=== PATIENT | female | born 1935 | race Caucasian/White ===

== ENCOUNTER 2019-01-10 13:26 | Inpatient (IN) | payer MEDICARE, BC ==
--- NOTE | 2019-01-10 13:37 | EDM.PDOC ---
ED HPI GENERAL MEDICAL PROBLEM - General Chief Complaint: General Stated Complaint: AMB Time Seen by Provider: 01/10/19 13:33 - History of Present Illness INITIAL COMMENTS - FREE TEXT/NARRATIVE: HISTORY AND PHYSICAL: History of present illness: Patient is an 83-year-old white female with extensive past medical history is currently on Plavix and presents with concern of cough 1 week with one episode of hemoptysis today there's been no shortness of breath no nausea no vomiting no chest pain no other concern. Review of systems: As per history of present illness and below otherwise all systems reviewed and negative. Past medical history: As per history of present illness and as reviewed below otherwise noncontributory. Surgical history: As per history of present illness and as reviewed below otherwise noncontributory. Social history: No reported history of drug or alcohol abuse. Family history: As per history of present illness and as reviewed below otherwise noncontributory. Physical exam: HEENT: Atraumatic, normocephalic, pupils reactive, negative for conjunctival pallor or scleral icterus, mucous membranes moist, throat clear, neck supple, nontender, trachea midline. Lungs: Clear to auscultation, breath sounds equal bilaterally, chest nontender. Heart: S1S2, regular, negative for clicks, rubs, or JVD. Abdomen: Soft, nondistended, nontender. Negative for masses or hepatosplenomegaly. Negative for costovertebral tenderness. Pelvis: Stable nontender. Genitourinary: Deferred. Rectal: Deferred. Extremities: Atraumatic, negative for cords or calf pain. Neurovascular unremarkable. Neuro: Awake, alert, oriented. Cranial nerves II through XII unremarkable. Cerebellum unremarkable. Motor and sensory unremarkable throughout. Exam nonfocal. Diagnostics: CBC CMP troponin PT/INR chest x-ray EKG influenza screen Therapeutics: Saline lock Impression: #1 history of hemoptysis #2 tracheobronchitis Definitive disposition and diagnosis as appropriate pending reevaluation and review of above. - Related Data Allergies Allergy/AdvReac Type Severity Reaction Status Date / Time Kfhhxyq-Elm-Lmv Reductase Allergy Cannot Verified 01/10/19 13:27 Inhibitor Remember Home Meds: Home Meds Acetaminophen [Tylenol] 325 mg PO Q4H PRN 02/10/15 [History] Aspirin [Halfprin] 81 mg PO DAILY 02/10/15 [History] Clopidogrel [Plavix] 75 mg PO DAILY 02/10/15 [History] Colesevelam HCl [Welchol] 1,875 mg PO BID 02/10/15 [History] Gemfibrozil 600 mg PO BID 02/10/15 [History] Multivits-Min/Iron/FA/Lutein [Centrum Silver Women Tablet] 1 each PO DAILY 02/10 [History] Ranitidine [Zantac] 150 mg PO BID 02/10/15 [History] Spironolactone [Aldactone] 100 mg PO DAILY 02/10/15 [History] amLODIPine [Norvasc] 2.5 mg PO DAILY 02/10/15 [History] Past Medical History HEENT History: Reports: Impaired Vision, Other (See Below) Other HEENT History: wears glasses Cardiovascular History: Reports: Hypertension Respiratory History: Reports: None Gastrointestinal History: Reports: None Genitourinary History: Reports: None COUNTRY DIRECTOR History: Reports: Other (See Below) Other COUNTRY DIRECTOR History: D&C x2 Musculoskeletal History: Reports: None Neurological History: Reports: None Psychiatric History: Reports: None Endocrine/Metabolic History: Reports: None Hematologic History: Reports: None Immunologic History: Reports: None Oncologic (Cancer) History: Reports: None Dermatologic History: Reports: None - Infectious Disease History Infectious Disease History: Reports: Chicken Pox - Past Surgical History Head Surgeries/Procedures: Reports: None HEENT Surgical History: Reports: None Cardiovascular Surgical History: Reports: Other (See Below) Other Cardiovascular Surgeries/Procedures: Right carotid artery surgery, angiogram Respiratory Surgical History: Reports: None GI Surgical History: Reports: None Female Surgical History: Reports: None Endocrine Surgical History: Reports: None Neurological Surgical History: Reports: None Musculoskeletal Surgical History: Reports: None Oncologic Surgical History: Reports: None Dermatological Surgical History: Reports: None Social & Family History - Family History Family Medical History: Noncontributory - Tobacco Use Smoking Status *Q: Never Smoker Second Hand Smoke Exposure: No - Caffeine Use Caffeine Use: Reports: Coffee - Recreational Drug Use Recreational Drug Use: No ED ROS GENERAL - Review of Systems Review Of Systems: ROS reveals no pertinent complaints other than HPI. ED EXAM, GENERAL - Physical Exam Exam: See Below (See dictation) Course - Vital Signs Last Recorded V/S: Last Vital Signs Temp 36.3 C 01/10/19 13:27 Pulse 88 02/25/19 14:28 Resp 18 01/10/19 14:28 BP 145/82 H 01/10/19 14:28 Pulse Ox 98 01/10/19 14:28 - Orders/Labs/Meds Orders: Active Orders 24 hr Category Date Time Status EKG Documentation Completion [RC] STAT Care 01/10/19 13:32 Active CULTURE BLOOD [BC] Stat Lab 01/10/19 14:40 Ordered CULTURE BLOOD [BC] Stat Lab 01/10/19 14:40 Ordered LACTATE WITH REFLEX [BG] Stat Lab 01/10/19 14:40 Ordered Levofloxacin/Dextrose 5%-Water [Levaquin in D5W 750 MG/ Med 01/10/19 14:40 Ordered 150 ML] 750 mg Premix Bag 1 bag IV ONETIME Blood Culture x2 Reflex Set [OM.PC] Stat Oth 01/10/19 14:40 Ordered Medication Orders Levofloxacin/Dextrose 750 mg/ (Premix) 150 mls @ 100 mls/hr IV ONETIME ONE Stop: 01/10/19 16:09 Labs: Laboratory Tests 01/10/19 01/10/19 01/10/19 Range/Units 13:40 13:40 13:40 WBC 12.65 H (4.0-11.0) K/uL RBC 3.82 L (4.30-5.90) M/uL Hgb 11.9 L (12.0-16.0) g/dL Hct 34.3 L (36.0-46.0) % MCV 89.8 (80.0-98.0) fL MCH 31.2 (27.0-32.0) pg MCHC 34.7 (31.0-37.0) g/dL RDW Std Deviation 40.9 (28.0-62.0) fl RDW Coeff of Filomena 13 (11.0-15.0) % Plt Count 530 H (150-400) K/uL MPV 8.80 (7.40-12.00) fL Neut % (Auto) 82.8 H (48.0-80.0) % Lymph % (Auto) 8.5 L (16.0-40.0) % [place] % (Auto) 7.5 (0.0-15.0) % Eos % (Auto) 1.0 (0.0-7.0) % Baso % (Auto) 0.2 (0.0-1.5) % Neut # (Auto) 10.5 H (1.4-5.7) K/uL Lymph # (Auto) 1.1 (0.6-2.4) K/uL [place] # (Auto) 1.0 H (0.0-0.8) K/uL Eos # (Auto) 0.1 (0.0-0.7) K/uL Baso # (Auto) 0.0 (0.0-0.1) K/uL Nucleated RBC % 0.0 /100WBC Nucleated RBCs # 0 K/uL INR 1.16 Sodium 133 L (136-145) mmol/L Potassium 3.6 (3.5-5.1) mmol/L Chloride 99 (98-107) mmol/L Carbon Dioxide 19.2 L (21.0-32.0) mmol/L BUN 18 (7.0-18.0) mg/dL Creatinine 0.9 (0.6-1.0) mg/dL Est Cr Clr Drug Dosing 36.37 mL/min Estimated GFR (MDRD) 59.9 ml/min Glucose 115 H (74-106) mg/dL Calcium 10.1 (8.5-10.1) mg/dL Total Bilirubin 0.4 (0.2-1.0) mg/dL AST 17 (15-37) IU/L ALT 17 (14-63) IU/L Alkaline Phosphatase 126 H (46-116) U/L Troponin I < 0.050 (0.000-0.056) ng/mL Total Protein 8.1 (6.4-8.2) g/dL Albumin 2.7 L (3.4-5.0) g/dL Globulin 5.4 H (2.6-4.0) g/dL Albumin/Globulin Ratio 0.5 L (0.9-1.6) Meds: Medications Generic Name Dose Route Start Last Admin Trade Name Freq PRN Reason Stop Dose Admin Levofloxacin/Dextrose 750 mg/ 150 mls @ 100 mls/hr 01/10/19 14:40 Premix IV 01/10/19 16:09 ONETIME ONE Departure - Departure Time of Disposition: 14:41 Disposition: Refer to Observation Condition: Good Clinical Impression: Pneumonia - Discharge Information Forms: ED Department Discharge - My Orders Last 24 Hours: My Active Orders 01/10/19 13:32 EKG Documentation Completion [RC] STAT 01/10/19 14:40 CULTURE BLOOD [BC] Stat CULTURE BLOOD [BC] Stat LACTATE WITH REFLEX [BG] Stat Levofloxacin/Dextrose 5%-Water [Levaquin in D5W 750 MG/150 ML] 750 mg Premix Bag 1 bag IV ONETIME Blood Culture x2 Reflex Set [OM.PC] Stat - Assessment/Plan Last 24 Hours: My Active Orders 01/10/19 13:32 EKG Documentation Completion [RC] STAT 01/10/19 14:40 CULTURE BLOOD [BC] Stat CULTURE BLOOD [BC] Stat LACTATE WITH REFLEX [BG] Stat Levofloxacin/Dextrose 5%-Water [Levaquin in D5W 750 MG/150 ML] 750 mg Premix Bag 1 bag IV ONETIME Blood Culture x2 Reflex Set [OM.PC] Stat
[2019-01-10 14:14] LABS: CHLORIDE,CL 99 mmol/L (98-107); SODIUM,NA 133 mmol/L (136-145)
--- NOTE | 2019-01-10 14:33 | CR ---
EXAMINATION: AP chest radiograph. HISTORY: Cough. FINDINGS: The trachea is midline. The cardiomediastinal silhouette is within normal limits. There is masslike consolidation within the right lung base. There is also consolidation within the left lung base likely a trace pleural effusion. No pneumothorax. Osseous structures appear unremarkable. IMPRESSION: Bibasilar consolidation/infiltrate. Follow-up chest radiograph after treatment is recommended to rule out a neoplastic process.
[2019-01-10] MEDS ORDERED: Levofloxacin/Dextrose 5%-Water 750 MG in Premix Bag 1 BAG IV ONE (14:40)
--- NOTE | 2019-01-10 18:19 | PCM.HP ---
H&P History of Present Illness - General Date of Service: 01/10/19 Admit Problem/Dx: Admission Diagnosis/Problem Admission Diagnosis/Problem Pneumonia - History of Present Illness Initial Comments - Free Text/Narative: 83-year-old female presenting with a one-week history of cough, shortness of breath without any fevers or chills or significant fatigue. Patient states that she became concerned this morning after having a bout of cough that resulted in some hemoptysis as well. This was the first time that she had some hemoptysis since her symptoms began. She does take Plavix for carotid stenosis. She does not have any major cardiovascular events she does take amlodipine and spironolactone for hypertension, cholesterol medication and the antiplatelet therapy. Patient denies any history of respiratory illnesses including COPD. Patient denies any smoking history, denies any history of type 2 diabetes. - Related Data Allergies/Adverse Reactions: Allergies Allergy/AdvReac Type Severity Reaction Status Date / Time Qsysryg-Hip-Jia Reductase Allergy Cannot Verified 01/10/19 13:27 Inhibitor Remember Home Medications: Home Meds Acetaminophen [Tylenol] 325 mg PO Q4H PRN 02/10/15 [History] Aspirin [Halfprin] 81 mg PO DAILY 02/10/15 [History] Clopidogrel [Plavix] 75 mg PO DAILY 02/10/15 [History] Colesevelam HCl [Welchol] 1,875 mg PO BID 02/10/15 [History] Gemfibrozil 600 mg PO BID 02/10/15 [History] Multivits-Min/Iron/FA/Lutein [Centrum Silver Women Tablet] 1 each PO DAILY 02/10 [History] Ranitidine [Zantac] 150 mg PO BID 02/10/15 [History] Spironolactone [Aldactone] 100 mg PO DAILY 02/10/15 [History] amLODIPine [Norvasc] 2.5 mg PO DAILY 02/10/15 [History] Past Medical History HEENT History: Reports: Impaired Vision, Other (See Below) Other HEENT History: wears glasses Cardiovascular History: Reports: Hypertension Respiratory History: Reports: None Gastrointestinal History: Reports: None Genitourinary History: Reports: None FLOW SPECIALIST History: Reports: Other (See Below) Other OB/BYN History: D&C x2 Musculoskeletal History: Reports: None Neurological History: Reports: None Psychiatric History: Reports: None Endocrine/Metabolic History: Reports: None Hematologic History: Reports: None Immunologic History: Reports: None Oncologic (Cancer) History: Reports: None Dermatologic History: Reports: None - Infectious Disease History Infectious Disease History: Reports: Chicken Pox - Past Surgical History Head Surgeries/Procedures: Reports: None HEENT Surgical History: Reports: None Cardiovascular Surgical History: Reports: Other (See Below) Other Cardiovascular Surgeries/Procedures: Right carotid artery surgery, angiogram Respiratory Surgical History: Reports: None GI Surgical History: Reports: None Female Surgical History: Reports: None Endocrine Surgical History: Reports: None Neurological Surgical History: Reports: None Musculoskeletal Surgical History: Reports: None Oncologic Surgical History: Reports: None Dermatological Surgical History: Reports: None Social & Family History - Family History Family Medical History: Noncontributory - Tobacco Use Smoking Status *Q: Never Smoker Second Hand Smoke Exposure: No - Caffeine Use Caffeine Use: Reports: Coffee - Recreational Drug Use Recreational Drug Use: No H&P Review of Systems - Review of Systems: Review Of Systems: ROS reveals no pertinent complaints other than HPI. Exam - Exam Exam: See Below - Vital Signs Vital Signs: Last Vital Signs Temp 36.3 C 01/10/19 13:27 Pulse 95 01/10/19 17:02 Resp 18 01/10/19 17:02 BP 135/65 01/10/19 17:02 Pulse Ox 95 01/10/19 17:02 Weight: 68.039 kg - Exam General: Alert, Oriented, Cooperative Lungs: Clear to Auscultation, Decreased Breath Sounds Cardiovascular: Regular Rate, Regular Rhythm Extremities: Normal Inspection, Normal Range of Motion, Non-Tender, No Pedal Edema, Normal Capillary Refill - Patient Data Lab Results Last 24 hrs: Laboratory Results - last 24 hr 01/10/19 01/10/19 01/10/19 Range/Units 13:40 13:40 13:40 WBC 12.65 H (4.0-11.0) K/uL RBC 3.82 L (4.30-5.90) M/uL Hgb 11.9 L (12.0-16.0) g/dL Hct 34.3 L (36.0-46.0) % MCV 89.8 (80.0-98.0) fL MCH 31.2 (27.0-32.0) pg MCHC 34.7 (31.0-37.0) g/dL RDW Std Deviation 40.9 (28.0-62.0) fl RDW Coeff of Filomena 13 (11.0-15.0) % Plt Count 530 H (150-400) K/uL MPV 8.80 (7.40-12.00) fL Neut % (Auto) 82.8 H (48.0-80.0) % Lymph % (Auto) 8.5 L (16.0-40.0) % [place] % (Auto) 7.5 (0.0-15.0) % Eos % (Auto) 1.0 (0.0-7.0) % Baso % (Auto) 0.2 (0.0-1.5) % Neut # (Auto) 10.5 H (1.4-5.7) K/uL Lymph # (Auto) 1.1 (0.6-2.4) K/uL [place] # (Auto) 1.0 H (0.0-0.8) K/uL Eos # (Auto) 0.1 (0.0-0.7) K/uL Baso # (Auto) 0.0 (0.0-0.1) K/uL Nucleated RBC % 0.0 /100WBC Nucleated RBCs # 0 K/uL INR 1.16 Lactate (0.20-2.00) mmol/L Sodium 133 L (136-145) mmol/L Potassium 3.6 (3.5-5.1) mmol/L Chloride 99 (98-107) mmol/L Carbon Dioxide 19.2 L (21.0-32.0) mmol/L BUN 18 (7.0-18.0) mg/dL Creatinine 0.9 (0.6-1.0) mg/dL Est Cr Clr Drug Dosing 36.37 mL/min Estimated GFR (MDRD) 59.9 ml/min Glucose 115 H (74-106) mg/dL Calcium 10.1 (8.5-10.1) mg/dL Total Bilirubin 0.4 (0.2-1.0) mg/dL AST 17 (15-37) IU/L ALT 17 (14-63) IU/L Alkaline Phosphatase 126 H (46-116) U/L Troponin I < 0.050 (0.000-0.056) ng/mL Total Protein 8.1 (6.4-8.2) g/dL Albumin 2.7 L (3.4-5.0) g/dL Globulin 5.4 H (2.6-4.0) g/dL Albumin/Globulin Ratio 0.5 L (0.9-1.6) 01/10/19 Range/Units 15:21 WBC (4.0-11.0) K/uL RBC (4.30-5.90) M/uL Hgb (12.0-16.0) g/dL Hct (36.0-46.0) % MCV (80.0-98.0) fL MCH (27.0-32.0) pg MCHC (31.0-37.0) g/dL RDW Std Deviation (28.0-62.0) fl RDW Coeff of Filomena (11.0-15.0) % Plt Count (150-400) K/uL MPV (7.40-12.00) fL Neut % (Auto) (48.0-80.0) % Lymph % (Auto) (16.0-40.0) % [place] % (Auto) (0.0-15.0) % Eos % (Auto) (0.0-7.0) % Baso % (Auto) (0.0-1.5) % Neut # (Auto) (1.4-5.7) K/uL Lymph # (Auto) (0.6-2.4) K/uL [place] # (Auto) (0.0-0.8) K/uL Eos # (Auto) (0.0-0.7) K/uL Baso # (Auto) (0.0-0.1) K/uL Nucleated RBC % /100WBC Nucleated RBCs # K/uL INR Lactate 1.1 (0.20-2.00) mmol/L Sodium (136-145) mmol/L Potassium (3.5-5.1) mmol/L Chloride (98-107) mmol/L Carbon Dioxide (21.0-32.0) mmol/L BUN (7.0-18.0) mg/dL Creatinine (0.6-1.0) mg/dL Est Cr Clr Drug Dosing mL/min Estimated GFR (MDRD) ml/min Glucose (74-106) mg/dL Calcium (8.5-10.1) mg/dL Total Bilirubin (0.2-1.0) mg/dL AST (15-37) IU/L ALT (14-63) IU/L Alkaline Phosphatase (46-116) U/L Troponin I (0.000-0.056) ng/mL Total Protein (6.4-8.2) g/dL Albumin (3.4-5.0) g/dL Globulin (2.6-4.0) g/dL Albumin/Globulin Ratio (0.9-1.6) Result Diagrams: 01/10/19 13:40 01/10/19 13:40 Baron Results Last 24 hrs: Microbiology 01/10/19 13:40 Influenza Type A Antigen Screen - Final Nasopharyngeal Swab NEGATIVE INFLUENZA A VIRUS AG Influenza Type B Antigen Screen - Final NEGATIVE INFLUENZA B VIRUS AG Problem List Initiated/Reviewed/Updated: Yes Orders Last 24hrs: Active Orders 24 hr Category Date Time Status Patient Status [ADT] Stat ADT 01/10/19 14:44 Active EKG Documentation Completion [RC] STAT Care 01/10/19 13:32 Active CULTURE BLOOD [BC] Stat Lab 01/10/19 14:58 Received CULTURE BLOOD [BC] Stat Lab 01/10/19 15:21 Received Blood Culture x2 Reflex Set [OM.PC] Stat Oth 01/10/19 14:40 Ordered Assessment/Plan Comment:: This is a 83-year-old female with a one-week history of cough, shortness of breath on exertion, one day history of hemoptysis without any fevers or chills with a chest x-ray indicating bibasilar consolidation with the recommendation of a follow-up chest x-ray after treatment to rule out any neoplastic process. Plan is to start the patient on IV antibiotics Levaquin 750 every 24 hours, trend labs to ensure appropriate response to therapy, sputum cultures and blood cultures. Patient to also give supplement therapy for hypoxia as needed.
[2019-01-10] MEDS ORDERED: Sodium Chloride 0.9% 2.5 ML Syringe FLUSH PRN (18:20)
[2019-01-10] MEDS ORDERED: Sodium Chloride 0.9% 10 ML Syringe FLUSH PRN (18:20)
[2019-01-10] MEDS ORDERED: Acetaminophen 325 MG Tab PO PRN (18:20)
[2019-01-10] MEDS ORDERED: Morphine 2 MG/ML Syringe IVPUSH PRN (18:20)
[2019-01-10] MEDS ORDERED: Ondansetron 4 MG/2 ML SDV IVPUSH PRN (18:20)
[2019-01-11] MEDS ORDERED: Sodium Chloride 0.9% 1,000 ML IV SCH (10:30)
[2019-01-11] MEDS ORDERED: Iopamidol 755 MG/ML 500 ML Multipack Bottle IVPUSH STA (10:50)
--- NOTE | 2019-01-11 11:12 | PCM.PN ---
- General Info Date of Service: 01/11/19 Admission Dx/Problem (Free Text): Admission Diagnosis/Problem Admission Diagnosis/Problem Pneumonia Subjective Update: Feeling ok today, no more episodes of hemoptysis. Has not been out of bed much to see how shortness of breath is, but at rest she feels ok. Functional Status: Reports: Pain Controlled, Tolerating Diet, Urinating - Review of Systems HEENT: Reports: No Symptoms. Denies: Headaches, Sore Throat Pulmonary: Reports: Shortness of Breath, Cough, Sputum (clear to green). Denies : Hemoptysis, Wheezing Cardiovascular: Reports: No Symptoms. Denies: Chest Pain, Palpitations, Lightheadedness Gastrointestinal: Reports: No Symptoms. Denies: Abdominal Pain, Nausea, Vomiting Genitourinary: Reports: No Symptoms Musculoskeletal: Reports: No Symptoms Skin: Reports: No Symptoms Neurological: Reports: No Symptoms Psychiatric: Reports: No Symptoms - Patient Data Vitals - Most Recent: Last Vital Signs Temp 97.2 F 01/11/19 08:00 Pulse 86 01/11/19 08:00 Resp 20 01/11/19 08:00 BP 118/72 01/11/19 08:00 Pulse Ox 93 L 01/11/19 08:00 Weight - Most Recent: 67.132 kg I&O - Last 24 Hours: Intake & Output 01/10/19 01/11/19 01/11/19 22:59 06:59 14:59 Intake Total 200 Output Total 400 Balance -200 Lab Results Last 24 Hours: Laboratory Results - last 24 hr 01/10/19 01/10/19 01/10/19 Range/Units 13:40 13:40 13:40 WBC 12.65 H (4.0-11.0) K/uL RBC 3.82 L (4.30-5.90) M/uL Hgb 11.9 L (12.0-16.0) g/dL Hct 34.3 L (36.0-46.0) % MCV 89.8 (80.0-98.0) fL MCH 31.2 (27.0-32.0) pg MCHC 34.7 (31.0-37.0) g/dL RDW Std Deviation 40.9 (28.0-62.0) fl RDW Coeff of Filomena 13 (11.0-15.0) % Plt Count 530 H (150-400) K/uL MPV 8.80 (7.40-12.00) fL Neut % (Auto) 82.8 H (48.0-80.0) % Lymph % (Auto) 8.5 L (16.0-40.0) % [place] % (Auto) 7.5 (0.0-15.0) % Eos % (Auto) 1.0 (0.0-7.0) % Baso % (Auto) 0.2 (0.0-1.5) % Neut # (Auto) 10.5 H (1.4-5.7) K/uL Lymph # (Auto) 1.1 (0.6-2.4) K/uL [place] # (Auto) 1.0 H (0.0-0.8) K/uL Eos # (Auto) 0.1 (0.0-0.7) K/uL Baso # (Auto) 0.0 (0.0-0.1) K/uL Add Manual Diff Neutrophils % (Manual) (48.0-80.0) % Band Neutrophils % % Lymphocytes % (Manual) (16.0-40.0) % Monocytes % (Manual) (0.0-15.0) % Eosinophils % (Manual) (0.0-7.0) % Nucleated RBC % 0.0 /100WBC Absolute Seg Neuts (1.4-5.7) Band Neutrophils # Lymphocytes # (Manual) (0.6-2.4) Monocytes # (Manual) (0.0-0.8) Eosinophils # (Manual) (0.0-0.7) Nucleated RBCs # 0 K/uL INR 1.16 Lactate (0.20-2.00) mmol/L Sodium 133 L (136-145) mmol/L Potassium 3.6 (3.5-5.1) mmol/L Chloride 99 (98-107) mmol/L Carbon Dioxide 19.2 L (21.0-32.0) mmol/L BUN 18 (7.0-18.0) mg/dL Creatinine 0.9 (0.6-1.0) mg/dL Est Cr Clr Drug Dosing 36.37 mL/min Estimated GFR (MDRD) 59.9 ml/min Glucose 115 H (74-106) mg/dL Calcium 10.1 (8.5-10.1) mg/dL Total Bilirubin 0.4 (0.2-1.0) mg/dL AST 17 (15-37) IU/L ALT 17 (14-63) IU/L Alkaline Phosphatase 126 H (46-116) U/L Troponin I < 0.050 (0.000-0.056) ng/mL Total Protein 8.1 (6.4-8.2) g/dL Albumin 2.7 L (3.4-5.0) g/dL Globulin 5.4 H (2.6-4.0) g/dL Albumin/Globulin Ratio 0.5 L (0.9-1.6) 01/10/19 01/11/19 01/11/19 Range/Units 15:21 05:25 05:25 WBC 12.48 H (4.0-11.0) K/uL RBC 3.91 L (4.30-5.90) M/uL Hgb 12.2 (12.0-16.0) g/dL Hct 35.5 L (36.0-46.0) % MCV 90.8 (80.0-98.0) fL MCH 31.2 (27.0-32.0) pg MCHC 34.4 (31.0-37.0) g/dL RDW Std Deviation 41.8 (28.0-62.0) fl RDW Coeff of Filomena 13 (11.0-15.0) % Plt Count 595 H (150-400) K/uL MPV 9.10 (7.40-12.00) fL Neut % (Auto) (48.0-80.0) % Lymph % (Auto) (16.0-40.0) % [place] % (Auto) (0.0-15.0) % Eos % (Auto) (0.0-7.0) % Baso % (Auto) (0.0-1.5) % Neut # (Auto) (1.4-5.7) K/uL Lymph # (Auto) (0.6-2.4) K/uL [place] # (Auto) (0.0-0.8) K/uL Eos # (Auto) (0.0-0.7) K/uL Baso # (Auto) (0.0-0.1) K/uL Add Manual Diff YES Neutrophils % (Manual) 72 (48.0-80.0) % Band Neutrophils % 5 % Lymphocytes % (Manual) 17 (16.0-40.0) % Monocytes % (Manual) 5 (0.0-15.0) % Eosinophils % (Manual) 1 (0.0-7.0) % Nucleated RBC % 0.0 /100WBC Absolute Seg Neuts 9.0 H (1.4-5.7) Band Neutrophils # 0.6 Lymphocytes # (Manual) 2.1 (0.6-2.4) Monocytes # (Manual) 0.6 (0.0-0.8) Eosinophils # (Manual) 0.1 (0.0-0.7) Nucleated RBCs # 0 K/uL INR Lactate 1.1 (0.20-2.00) mmol/L Sodium 135 L (136-145) mmol/L Potassium 3.8 (3.5-5.1) mmol/L Chloride 99 (98-107) mmol/L Carbon Dioxide 21.1 (21.0-32.0) mmol/L BUN 15 (7.0-18.0) mg/dL Creatinine 1.0 (0.6-1.0) mg/dL Est Cr Clr Drug Dosing 32.73 mL/min Estimated GFR (MDRD) 53.1 ml/min Glucose 112 H (74-106) mg/dL Calcium 10.1 (8.5-10.1) mg/dL Total Bilirubin 0.4 (0.2-1.0) mg/dL AST 18 (15-37) IU/L ALT 18 (14-63) IU/L Alkaline Phosphatase 128 H (46-116) U/L Troponin I (0.000-0.056) ng/mL Total Protein 8.0 (6.4-8.2) g/dL Albumin 2.6 L (3.4-5.0) g/dL Globulin 5.4 H (2.6-4.0) g/dL Albumin/Globulin Ratio 0.5 L (0.9-1.6) Baron Results Last 24 Hours: Microbiology 01/10/19 13:40 Influenza Type A Antigen Screen - Final Nasopharyngeal Swab NEGATIVE INFLUENZA A VIRUS AG Influenza Type B Antigen Screen - Final NEGATIVE INFLUENZA B VIRUS AG Med Orders - Current: Current Medications Acetaminophen (Tylenol) 650 mg PO Q4H PRN PRN Reason: Pain (Mild 1-3)/fever Piperacillin Sod/Tazobactam (Sod 3.375 gm/ Sodium Chloride) 50 mls @ 100 mls/ hr IV Q6H MYRA Sodium Chloride (Normal Saline) 1,000 mls @ 100 mls/hr IV ASDIRECTED MYRA Stop: 01/11/19 20:29 Morphine Sulfate (Morphine) 2 mg IVPUSH Q2H PRN PRN Reason: Pain (severe 7-10) Stop: 01/11/19 18:21 Ondansetron HCl (Zofran) 4 mg IVPUSH Q4H PRN PRN Reason: Nausea/Vomiting Sodium Chloride (Saline Flush) 10 ml FLUSH ASDIRECTED PRN PRN Reason: Keep Vein Open Sodium Chloride (Saline Flush) 2.5 ml FLUSH ASDIRECTED PRN PRN Reason: Keep Vein Open Discontinued Medications Levofloxacin/Dextrose 750 mg/ (Premix) 150 mls @ 100 mls/hr IV ONETIME ONE Stop: 01/10/19 16:09 Last Admin: 01/10/19 15:22 Dose: 100 mls/hr Iopamidol (Isovue Multipack-370 (76%)) 65 ml IVPUSH ONETIME STA Stop: 01/11/19 10:51 Last Admin: 01/11/19 10:51 Dose: 65 ml - Exam General: Alert, Oriented, Cooperative, No Acute Distress Neck: Supple Lungs: Normal Respiratory Effort, Rhonchi (bibasilar) Cardiovascular: Regular Rate, Regular Rhythm, No Murmurs GI/Abdominal Exam: Normal Bowel Sounds, Soft, Non-Tender Extremities: Normal Inspection, Normal Range of Motion, Non-Tender, No Pedal Edema Neurological: No New Focal Deficit Psy/Mental Status: Alert, Normal Affect, Normal Mood - Problem List & Annotations (1) Pneumonia SNOMED Code(s): 636186116 Code(s): J18.9 - PNEUMONIA, UNSPECIFIED ORGANISM Status: Acute Current Visit: Yes Qualifiers: Laterality: bilateral Lung location: lower lobe of lung (2) HTN (hypertension) SNOMED Code(s): 55237365 Code(s): I10 - ESSENTIAL (PRIMARY) HYPERTENSION Status: Chronic Current Visit: Yes Qualifiers: Hypertension type: essential hypertension Qualified Code(s): I10 - Essential (primary) hypertension (3) Carotid stenosis Status: Chronic Current Visit: Yes Qualifiers: Laterality: right Qualified Code(s): I65.21 - Occlusion and stenosis of right carotid artery (4) Hypercholesteremia SNOMED Code(s): 38258740 Code(s): E78.00 - PURE HYPERCHOLESTEROLEMIA, UNSPECIFIED Status: Chronic Current Visit: Yes - Problem List Review Problem List Initiated/Reviewed/Updated: Yes - My Orders Last 24 Hours: My Active Orders 01/11/19 10:22 Chest w Cont [CT] Routine 01/11/19 10:30 Piperacillin/Tazobactam [Piperacil-Tazobact] 3.375 gm Sodium Chloride 0.9% [ Normal Saline] 50 ml IV Q6H Sodium Chloride 0.9% [Normal Saline] 1,000 ml IV ASDIRECTED Resuscitation Status Routine - Plan Plan:: This is a 83-year-old female with a one-week history of cough, shortness of breath on exertion, one day history of hemoptysis without any fevers or chills 1. CAP: Suspected CAP, Continue Levaquin 750 mg Q48 for renal adjustment, start Zosyn 3.375 mg Q6hr for anaerobic coverage due to mass like consolidation. Will obtain Chest CT today. Sputum and BC pending. 2. HTN: Stable. Continue Norvasc and Aldactone. 3. Hx Carotid stenosis: Plavix, continue for now no further hemoptysis noted. May consider stopping if this returns. 4. Hypercholesterolemia: Stable, continue home medications. VTE prophylaxis: SCDS for now due to hemoptysis. Dispo: 1-2 days pending improvement.
[2019-01-11] MEDS: Piperacillin/Tazobactam 3.375 GM in Sodium Chloride 0.9% 50 ML IV SCH ×3 (11:31→22:21)
[2019-01-11] MEDS: amLODIPine 2.5 MG Tab PO SCH (14:00)
[2019-01-11] MEDS: Spironolactone 25 MG Tab PO SCH (14:00)
--- NOTE | 2019-01-11 14:54 | CT ---
EXAMINATION: CT chest with contrast HISTORY: Masslike consolidation COMPARISON: Radiographs dated 01/10/2019, 11/02/2018 TECHNIQUE: Axial CT imaging obtained through the chest following the administration of 65 mL of Isovue-370 in the right anterior fossa. Coronal and sagittal reconstructions obtained. FINDINGS: Bilateral pulmonary masses and nodules are noted. There is a 2.3 cm spiculated heterogeneously enhancing nodule within the right middle lobe. There is nodular atelectasis within the right middle lobe. Also discrete nodules noted within the right lower lobe measuring 1.7 cm and the left suprahilar region measuring 1.2 cm. The central component of the nodules appear hypoenhancing, this may represent central necrosis, abscesses could also have a similar appearance. Trace right pleural effusion. There is a 2.3 x 4.1 cm right thyroid lobe nodule, well circumscribed. The thoracic aorta is normal in caliber. The main and central pulmonary arteries are patent. Nonpathologically enlarged mediastinal and hilar lymph nodes are noted. There is a small hiatal hernia. Small amount of fluid within the esophagus. Visualized images of the upper abdomen are grossly unremarkable. No suspicious osseous abnormalities. IMPRESSION: 1. Several pulmonary nodules noted bilaterally, these appear centrally hypoenhancing. These were not noted on the chest radiograph dated 11/02/2018, given the rapid progression these likely represent abscesses or metastatic disease. 2. There is an indeterminant 2.3 x 4.1 cm right thyroid nodule, correlation with ultrasound may be beneficial. 3. Small hiatal hernia with likely reflux.
--- NOTE | 2019-01-11 15:59 | PCM.SN ---
- Free Text/Narrative Note: CT of chest with contrast returned with spiculated heterogeneously enhancing nodule within the right middle lobe, also discrete nodules noted within the R lower lobe and left suprahilar region. There also was a indeterminant 2.3 x 4.1 cm r thyroid nodule noted as well. We spoke with Fabiana regarding findings on chest CT. Biopsy of mass is recommended , timeline for our facility would be 3-4 weeks out before biopsy would be available. Fabiana requested I speak with her niece, Tana Walsh, and inform her of these findings. She then would help her decide where she should go for further workup, she is considering [facility] or [facility]. Will continue Zosyn alone for now. Possible DC in next day or two pending improvement. Tana Walsh, byron [phone]
[2019-01-11] MEDS ORDERED: Clopidogrel 75 MG Tab PO ONE (18:08)
[2019-01-11] MEDS: Gemfibrozil 600 MG Tab PO SCH (20:25)
[2019-01-11] MEDS: Colesevelam 625 MG Tab PO SCH (20:25)
[2019-01-12] MEDS: Piperacillin/Tazobactam 3.375 GM in Sodium Chloride 0.9% 50 ML IV SCH ×2 (05:30→10:52)
[2019-01-12] MEDS: Gemfibrozil 600 MG Tab PO SCH (08:37)
[2019-01-12] MEDS ORDERED: Beta-Carotene (Vitamin A) w/Vitamin C & E plus Minerals Tab PO SCH (09:00)
[2019-01-12] MEDS ORDERED: Pantoprazole 40 MG Tab.CR PO SCH (09:00)
[2019-01-12] MEDS ORDERED: Clopidogrel 75 MG Tab PO SCH (09:00)
[2019-01-12] MEDS: amLODIPine 2.5 MG Tab PO SCH (09:07)
[2019-01-12] MEDS: Spironolactone 25 MG Tab PO SCH (09:08)
[2019-01-12] MEDS: Colesevelam 625 MG Tab PO SCH (09:10)
[2019-01-12] MEDS ORDERED: Levofloxacin/Dextrose 5%-Water 750 MG in Premix Bag 1 BAG IV SCH (10:00)
--- NOTE | 2019-01-12 11:15 | PCM.DCSUM1 ---
Discharge Summary - Hospital Course Brief History: 83-year-old female presenting with a one-week history of cough, shortness of breath without any fevers or chills or significant fatigue. Patient states that she became concerned this morning after having a bout of cough that resulted in some hemoptysis as well. This was the first time that she had some hemoptysis since her symptoms began. She does take Plavix for carotid stenosis. She does not have any major cardiovascular events she does take amlodipine and spironolactone for hypertension, cholesterol medication and the antiplatelet therapy. Patient denies any history of respiratory illnesses including COPD. Patient denies any smoking history, denies any history of type 2 diabetes. Diagnosis: Stroke: No - Discharge Data Discharge Date: 01/12/19 Discharge Disposition: Home, Self-Care 01 Condition: Good - Discharge Diagnosis/Problem(s) (1) Pneumonia SNOMED Code(s): 312365110 ICD Code: J18.9 - PNEUMONIA, UNSPECIFIED ORGANISM Status: Acute Current Visit: Yes Qualifiers: Laterality: bilateral Lung location: lower lobe of lung (2) HTN (hypertension) SNOMED Code(s): 86527972 ICD Code: I10 - ESSENTIAL (PRIMARY) HYPERTENSION Status: Chronic Current Visit: Yes Qualifiers: Hypertension type: essential hypertension Qualified Code(s): I10 - Essential (primary) hypertension (3) Carotid stenosis Status: Chronic Current Visit: Yes Qualifiers: Laterality: right Qualified Code(s): I65.21 - Occlusion and stenosis of right carotid artery (4) Hypercholesteremia SNOMED Code(s): 44056488 ICD Code: E78.00 - PURE HYPERCHOLESTEROLEMIA, UNSPECIFIED Status: Chronic Current Visit: Yes - Patient Instructions Diet: Heart Healthy Diet Activity: As Tolerated Showering/Bathing: May Shower Notify Provider of: Fever, Increased Pain, Swelling and Redness, Drainage, Nausea and/or Vomiting - Discharge Plan *PRESCRIPTION DRUG MONITORING PROGRAM REVIEWED*: Not Applicable *COPY OF PRESCRIPTION DRUG MONITORING REPORT IN PATIENT LINDA: Not Applicable Prescriptions/Med Rec: Amoxicillin/Clavulanate K [Augmentin 875-125 MG] 1 tab PO BID #10 tablet Benzonatate [Tessalon Perle] 100 mg PO TID PRN #30 capsule PRN Reason: Cough Home Medications: Home Meds Acetaminophen [Tylenol] 325 mg PO Q4H PRN 02/10/15 [History] Colesevelam HCl [Welchol] 1,875 mg PO BID 02/10/15 [History] Gemfibrozil 600 mg PO BID 02/10/15 [History] Multivits-Min/Iron/FA/Lutein [Centrum Silver Women Tablet] 1 each PO DAILY 02/10 [History] Spironolactone [Aldactone] 100 mg PO DAILY 02/10/15 [History] amLODIPine [Norvasc] 2.5 mg PO DAILY 02/10/15 [History] Pantoprazole Sodium [Protonix] 40 mg PO DAILY 01/10/19 [History] Amoxicillin/Clavulanate K [Augmentin 875-125 MG] 1 tab PO BID #10 tablet [Rx] Benzonatate [Tessalon Perle] 100 mg PO TID PRN #30 capsule 01/12/19 [Rx] Clopidogrel [Plavix] 75 mg PO DAILY #0 01/12/19 [Rx] Oxygen Therapy Mode: Room Air Patient Handouts: Community-Acquired Pneumonia, Adult, [id number] Referrals: [facility] [Outside] Clif Buckner MD [Physician] - 01/26/19 10:30 am - Discharge Summary/Plan Comment DC Time >30 min.: Yes (arranging biopsy in [place]) Discharge Summary/Plan Comment: Discharge Diagnoses: R middle lung lobe spiculated mass Possible CAP HTN Carotid stenosis Hyperlipidemia Fabiana was admitted secondary to new hemoptysis, dyspnea and dry cough. She denied fevers or chills. She reports she has not been eating well either. Slight leukocytosis was noted at 12,000 on admission. BC negative. Unable to obtain sputum, non productive cough and no further events of hemoptysis. She denies chest pain. Upon admission, CXR revealed mass like consolidation. Chest CT with contrast was obtained due to suspicion of mass. This revealed spiculated mass to RML with surrounding nodules as well. She reports smoked 2-3 ppd cigarettes around her. Biopsy was recommended, due to scheduling here with our radiologist, we are unable to obtain biopsy within the next 3 weeks. In discussion with patient and her niece, Tana Walsh, in [place], [place] they would like to seek care in [place] at [facility]. I have contacted a radiologist, Dr Connor, who reviewed the CT and reports they would be able to obtain a biospy of this area. Order sent to [facility] radiology department and they will call with patient with appointment date/time. We will continue Augmentin for 5 more days due to risk of pneumonia, though suspicion is low. She will be discharged home today with this prescription. She is to return to ED or clinic if concerns should arise. She is to hold Plavix 5 days prior to biopsy. She verbalized understanding of this. - General Info Date of Service: 01/12/19 Admission Dx/Problem (Free Text: Admission Diagnosis/Problem Admission Diagnosis/Problem Pneumonia Subjective Update: Sitting up in bed , feeling good after she ate today. Denies chest pain or SOB. No SOB with ambulation. No other concerns. Eager to arrange biopsy in [place], [place] Functional Status: Reports: Pain Controlled, Tolerating Diet, Ambulating, Urinating - Review of Systems General: Reports: No Symptoms. Denies: Fever, Weakness, Fatigue HEENT: Reports: No Symptoms. Denies: Headaches, Sore Throat Pulmonary: Reports: No Symptoms. Denies: Shortness of Breath, Cough, Sputum Cardiovascular: Reports: No Symptoms. Denies: Chest Pain, Edema Gastrointestinal: Reports: No Symptoms. Denies: Abdominal Pain, Nausea, Vomiting Genitourinary: Reports: No Symptoms. Denies: Dysuria, Frequency, Burning Musculoskeletal: Reports: No Symptoms Skin: Reports: No Symptoms Neurological: Reports: No Symptoms Psychiatric: Reports: No Symptoms - Patient Data Vitals - Most Recent: Last Vital Signs Temp 97.5 F 01/12/19 07:47 Pulse 80 01/12/19 08:10 Resp 14 01/12/19 07:47 BP 125/64 01/12/19 09:07 Pulse Ox 96 01/12/19 07:47 Weight - Most Recent: 67.132 kg I&O - Last 24 hours: Intake & Output 01/11/19 01/12/19 01/12/19 22:59 06:59 14:59 Intake Total 1154 1300 Output Total 500 1100 Balance 654 200 Lab Results - Last 24 hrs: Laboratory Results - last 24 hr 01/12/19 01/12/19 Range/Units 05:00 05:00 WBC 10.73 (4.0-11.0) K/uL RBC 3.61 L (4.30-5.90) M/uL Hgb 11.3 L (12.0-16.0) g/dL Hct 32.9 L (36.0-46.0) % MCV 91.1 (80.0-98.0) fL MCH 31.3 (27.0-32.0) pg MCHC 34.3 (31.0-37.0) g/dL RDW Std Deviation 42.3 (28.0-62.0) fl RDW Coeff of Filomena 13 (11.0-15.0) % Plt Count 537 H (150-400) K/uL MPV 8.90 (7.40-12.00) fL Add Manual Diff YES Neutrophils % (Manual) 76 (48.0-80.0) % Band Neutrophils % 2 % Lymphocytes % (Manual) 15 L (16.0-40.0) % Monocytes % (Manual) 5 (0.0-15.0) % Eosinophils % (Manual) 2 (0.0-7.0) % Nucleated RBC % 0.0 /100WBC Absolute Seg Neuts 8.2 H (1.4-5.7) Band Neutrophils # 0.2 Lymphocytes # (Manual) 1.6 (0.6-2.4) Monocytes # (Manual) 0.5 (0.0-0.8) Eosinophils # (Manual) 0.2 (0.0-0.7) Nucleated RBCs # 0 K/uL Sodium 138 (136-145) mmol/L Potassium 3.7 (3.5-5.1) mmol/L Chloride 103 (98-107) mmol/L Carbon Dioxide 22.6 (21.0-32.0) mmol/L BUN 13 (7.0-18.0) mg/dL Creatinine 0.9 (0.6-1.0) mg/dL Est Cr Clr Drug Dosing 36.37 mL/min Estimated GFR (MDRD) 59.9 ml/min Glucose 105 (74-106) mg/dL Calcium 9.1 (8.5-10.1) mg/dL TRAVIS Results - Last 24 hrs: Microbiology 01/10/19 15:21 Aerobic Blood Culture - Preliminary Blood - Venous - Lab Draw NO GROWTH AFTER 1 DAY Anaerobic Blood Culture - Preliminary NO GROWTH AFTER 1 DAY 01/10/19 14:58 Aerobic Blood Culture - Preliminary Blood - Venous NO GROWTH AFTER 1 DAY Anaerobic Blood Culture - Preliminary NO GROWTH AFTER 1 DAY Med Orders - Current: Current Medications Acetaminophen (Tylenol) 650 mg PO Q4H PRN PRN Reason: Pain (Mild 1-3)/fever Amlodipine Besylate (Norvasc) 2.5 mg PO DAILY [facility] Last Admin: 01/12/19 09:07 Dose: 2.5 mg Clopidogrel Bisulfate (Plavix) 75 mg PO DAILY [facility] Last Admin: 01/12/19 09:06 Dose: 75 mg Colesevelam HCl (Welchol) 1,875 mg PO BID [facility] Last Admin: 01/12/19 09:10 Dose: 1,875 mg Gemfibrozil (Lopid) 600 mg PO BID [facility] Last Admin: 01/12/19 08:37 Dose: 600 mg Piperacillin Sod/Tazobactam (Sod 3.375 gm/ Sodium Chloride) 50 mls @ 100 mls/ hr IV Q6H [facility] Last Admin: 01/12/19 10:52 Dose: 100 mls/hr Multivitamins/Minerals (Prosight) 1 tab PO DAILY [facility] Last Admin: 01/12/19 09:10 Dose: 1 tab Ondansetron HCl (Zofran) 4 mg IVPUSH Q4H PRN PRN Reason: Nausea/Vomiting Pantoprazole Sodium (Protonix) 40 mg PO DAILY [facility] Last Admin: 01/12/19 08:38 Dose: 40 mg Sodium Chloride (Saline Flush) 10 ml FLUSH ASDIRECTED PRN PRN Reason: Keep Vein Open Sodium Chloride (Saline Flush) 2.5 ml FLUSH ASDIRECTED PRN PRN Reason: Keep Vein Open Spironolactone (Aldactone) 100 mg PO DAILY [facility] Last Admin: 01/12/19 09:08 Dose: 100 mg Discontinued Medications Clopidogrel Bisulfate (Plavix) 75 mg PO ONETIME ONE Stop: 01/11/19 18:09 Last Admin: 01/11/19 18:13 Dose: 75 mg Levofloxacin/Dextrose 750 mg/ (Premix) 150 mls @ 100 mls/hr IV ONETIME ONE Stop: 01/10/19 16:09 Last Admin: 01/10/19 15:22 Dose: 100 mls/hr Sodium Chloride (Normal Saline) 1,000 mls @ 100 mls/hr IV ASDIRECTED MYRA Stop: 01/11/19 20:29 Last Admin: 01/11/19 11:26 Dose: 100 mls/hr Levofloxacin/Dextrose 750 mg/ (Premix) 150 mls @ 100 mls/hr IV Q48H [facility] Iopamidol (Isovue Multipack-370 (76%)) 65 ml IVPUSH ONETIME STA Stop: 01/11/19 10:51 Last Admin: 01/11/19 10:51 Dose: 65 ml Morphine Sulfate (Morphine) 2 mg IVPUSH Q2H PRN PRN Reason: Pain (severe 7-10) Stop: 01/11/19 18:21 - Exam Quality Assessment: Reports: DVT Prophylaxis (SCDs). Denies: Supplemental Oxygen General: Reports: Alert, Oriented, Cooperative Neck: Reports: Supple Lungs: Reports: Clear to Auscultation, Normal Respiratory Effort Cardiovascular: Reports: Regular Rate, Regular Rhythm GI/Abdominal Exam: Normal Bowel Sounds, Soft, Non-Tender, No Mass Extremities: Normal Inspection, Normal Range of Motion, Non-Tender Neurological: Reports: No New Focal Deficit Psy/Mental Status: Reports: Alert, Normal Affect, Normal Mood
[2019-01-12 15:12] VITALS: BP 143/66
--- NOTE | 2019-01-13 12:41 | PCM.SN ---
- Free Text/Narrative Note: Spoke with Phoebe GIL with interventional radiology in [facility] in [place]. She requested H/P and labwork along with CT guided lung biopsy order. This was sent along with demographic sheet. She stated she will contact patient with biopsy date.
== END 2019-01-12 16:46 | disposition home or self-care (01) | DRG 204 ==
LOC: MW.ED 13:26 → MW.MS 18:04
PROVIDERS: ADMIT Internal Medicine; ATTEND Internal Medicine
DX: R91.8 Other nonspecific abnormal finding of lung field (principal); J18.9 Pneumonia, unspecified organism; E78.00 Pure hypercholesterolemia, unspecified; E04.1 Nontoxic single thyroid nodule; I10 Essential (primary) hypertension; E78.5 Hyperlipidemia, unspecified; I65.21 Occlusion and stenosis of right carotid artery; H54.7 Unspecified visual loss; Z77.22 Contact with and (suspected) exposure to environmental tobacco smoke (acute) (chronic); Z88.8 Allergy status to other drugs, medicaments and biological substances; Z79.02 Long term (current) use of antithrombotics/antiplatelets; Z79.82 Long term (current) use of aspirin; Z79.899 Other long term (current) drug therapy
CPT/HCPCS: 36415; 71045; 80053; 83605; 84484; 85025; 85610; 87040 ×2; 87804 ×2; 93005; 96365; 99285; J1956; 71260; 71260-26; 80048; A9270-GY; J2543; J7040; J7050; Q9967